=== PATIENT | female | born 1980 | race Caucasian/White ===

== ENCOUNTER 2017-03-25 13:55 | Inpatient (IN) | payer OTHER ==
[~2017-03-25] VITALS: Ht 177.8 cm; Wt 62.9 kg
[~2017-03-25 13:55] MED LIST: AZITHROMYCIN500 M1 PO; TYLENOL EXTRA500 MG PO
[2017-03-25] MEDS ORDERED: MULTIVITAMIN1 EAC2 PO (15:44)
[2017-03-25 17:32] LABS: HEMATOCRIT 38.4 % (36.0-46.0); MCH 31.2 PG (29.0-34.0); MCHC 34.1 G/DL (30.0-36.0); MCV 91.4 FL (83-99); MEAN PLAT.VOLUME 8.9 uM^3 (9.5-12.4); PLATELET COUNT 297 K/uL (156-360); RBC DIS.WIDTH-CV 11.9 % (11.8-14.6); RBC DIS.WIDTH-SD 39.1 % (39-53); WHITE BLOOD COUNT 10.9 K/uL (4.1-10.2)
[2017-03-25 17:40] LABS: INTER. NORMALIZED RATIO 1.1; PROTHROMBIN TIME 10.7 (9.2-11.2); PTT 24.4 (25-32)
[2017-03-25 17:45] LABS: CHLORIDE 107 mEq/L (99-109); POTASSIUM 3.2 mEq/L (3.7-5.4); SODIUM 141 mEq/L (136-147)
[2017-03-25 17:47] LABS: GLUCOSE 93 mg/dL (70-99)
[2017-03-25 17:49] LABS: ANION GAP 13 MEQ/L (2-14); TOTAL BILIRUBIN 1.2 mg/dL (0.0-1.0)
[2017-03-25 17:51] LABS: ALKALINE PHOSPHATASE 48 IU/L (3-129); GFR ESTIMATE (CALCULATED) > 59 mL/min/
[2017-03-25 17:52] LABS: UREA NITROGEN (BUN) 9 mg/dL (9-23)
[2017-03-25 18:00] LABS: QUANTITATIVE HCG < 4.0 MIU/ML
[2017-03-25] MEDS ORDERED: ASCORBIC ACID500 M3 PO (18:54)
[2017-03-25] MEDS ORDERED: IRON325 M1 PO (18:55)
[2017-03-25] MEDS ORDERED: EYE DROPS15 M1 BOTH EYES (18:56)
[2017-03-25] MEDS ORDERED: [UNRECOGNIZED DRUG - OTHER] PO (18:56)
[2017-03-25 20:37] VITALS: BP 105/57
[2017-03-25 21:13] VITALS: BP 105/57
[2017-03-25 23:32] VITALS: BP 98/52
[2017-03-26 03:57] VITALS: BP 101/62
[2017-03-26 07:03] LABS: HEMATOCRIT 33.5 % (36.0-46.0); MCH 32.1 PG (29.0-34.0); MCV 94.4 FL (83-99); MEAN PLAT.VOLUME 9.1 uM^3 (9.5-12.4); PLATELET COUNT 238 K/uL (156-360); RBC DIS.WIDTH-SD 41.3 % (39-53); RED BLOOD COUNT 3.55 M/uL (3.80-5.20); WHITE BLOOD COUNT 6.8 K/uL (4.1-10.2)
[2017-03-26 07:28] VITALS: BP 121/67
[2017-03-26 10:50] VITALS: BP 121/68
[2017-03-26 15:36] VITALS: BP 90/50
[2017-03-26 16:31] VITALS: BP 110/62
[2017-03-26 20:00] VITALS: BP 100/58
[2017-03-27] VITALS: BP 115/69
[2017-03-27 03:44] VITALS: BP 118/58
[2017-03-27 07:08] VITALS: BP 109/63
[2017-03-27 16:20] VITALS: BP 104/73
[2017-03-27 19:44] VITALS: BP 126/82
[2017-03-27 23:52] VITALS: BP 115/70
[2017-03-28 04:22] VITALS: BP 112/77
[2017-03-28 08:23] VITALS: BP 122/75
[2017-03-28] MEDS ORDERED: NORCO 5/3251 TABLET PO (10:21)
[2017-03-28 11:47] VITALS: BP 114/53
[2017-03-28 16:34] VITALS: BP 115/70
== END 2017-03-28 17:13 | disposition home or self-care (01) | DRG 200 ==
LOC: EME 13:55 → 3EAST 19:09 → EDOF 19:09 → 3EAST 19:09
PROVIDERS: Physician Assistant; Surgery
PROC: 0W9B00Z Drainage of Left Pleural Cavity with Drainage Device, Open Approach (ICD-10-PCS; principal; 2017-03-25)
DX: S27.0XXA Traumatic pneumothorax, initial encounter (principal); S09.90XA Unspecified injury of head, initial encounter; T14.8 Other injury of unspecified body region; J98.11 Atelectasis; Y00.XXXA Assault by blunt object, initial encounter; I07.1 Rheumatic tricuspid insufficiency; F41.9 Anxiety disorder, unspecified; F17.210 Nicotine dependence, cigarettes, uncomplicated; H73.899 Other specified disorders of tympanic membrane, unspecified ear; F12.10 Cannabis abuse, uncomplicated
CPT/HCPCS: 70450; 70486; 71010; 71020; 73630; 74177; 80053; 81003; 84702; 85027; 85610; 85730; 90839; 93005; 93306; 99281; 99285; J2060; J2270; J2405; J7030; J7040; J7120